=== PATIENT | male | born 1940 | race Caucasian/White ===

== ENCOUNTER 2016-11-03 08:12 | Outpatient (CLI) | payer MEDICARE, OTHER ==
[~2016-11-03] VITALS: Ht 177.8 cm; Wt 84.1 kg
[~2016-11-03 08:12] MED LIST: AZEL23SP NSEACH; CLPD75T PO; DOXA8TAB3 PO; LVT.025T PO; MAGNESIUM PO; MECL25TA56 PO; NAPR-689 PO; NFAMINITAB PO; PRAV80TA2 PO; RANI300T4 PO
[2016-11-03] MEDS ORDERED: DOCU-238 PO (08:38)
[2016-11-03] MEDS ORDERED: ACET-93 PO (08:38)
[2016-11-03] MEDS ORDERED: TRAM50TA2 PO (08:38)
[2016-11-03] MEDS ORDERED: APRE1TAB2 PO (08:38)
[2016-11-03] MEDS ORDERED: PROM6.25 PO (08:38)
[2016-11-03] MEDS ORDERED: CHOL10007 PO (08:38)
[2016-11-03] MEDS ORDERED: TADA5TAB2 PO (08:38)
[2016-11-03] MEDS ORDERED: PANT40TA3 PO (08:38)
[2016-11-03] MEDS ORDERED: PARO20TA5 PO (08:38)
[2016-11-03] MEDS ORDERED: MAGN250T13 PO (08:38)
[2016-11-03] MEDS ORDERED: ROSU40TA20 PO (08:38)
[2016-11-03] MEDS ORDERED: FINA5TAB6 PO (08:38)
[2016-11-03] MEDS ORDERED: LISI-552 PO (08:38)
[2016-11-03] MEDS ORDERED: TAMS0.4C2 PO (08:38)
[2016-11-03] MEDS ORDERED: CLOP75TA28 PO (08:38)
[2016-11-03] MEDS ORDERED: LUBI8CAP PO (08:38)
[2016-11-03 08:45] VITALS: BP 135/64
[2016-11-03 09:10] LABS: BASOPHILS % (AUTO) 0 % (0-10); EOSINOPHILS % (AUTO) 0 % (0-10); LYMPHOCYTES # (AUTO) 1.2 X 10^3 (1.0-4.0); LYMPHOCYTES % (AUTO) 17 % (12-44); MEAN CORPUSCULAR HEMOGLOBIN 33 PG (25-34); MEAN CORPUSCULAR HGB CONC 34 G/DL (32-36); MEAN CORPUSCULAR VOLUME 99 FL (80-99); MEAN PLATELET VOLUME 9.6 FL (7.4-10.4); MONOCYTES # (AUTO) 0.5 X 10^3 (0.0-1.0); MONOCYTES % (AUTO) 7 % (0-12); NEUTROPHILS # (AUTO) 5.3 X 10^3 (1.8-7.8); NEUTROPHILS % (AUTO) 76 % (42-75); PLATELET COUNT 184 10^3/uL (130-400); RED BLOOD COUNT 3.91 10^6/uL (4.35-5.85); RED CELL DISTRIBUTION WIDTH 12.9 % (10.0-14.5)
[2016-11-03 09:34] LABS: ANION GAP 9 MMOL/L (5-14); BLOOD UREA NITROGEN 14 MG/DL (7-18); BUN/CREATININE RATIO 15; CALCIUM 9.6 MG/DL (8.5-10.1); CARBON DIOXIDE 23 MMOL/L (21-32); CHLORIDE 105 MMOL/L (98-107); CREATININE SERUM 0.93 MG/DL (0.60-1.30); GFR ESTIMATED > 60; GLUCOSE 107 MG/DL (70-105); POTASSIUM 4.3 MMOL/L (3.6-5.0); SODIUM 137 MMOL/L (135-145)
--- NOTE | 2016-11-03 09:38 | Diagnostic Imaging Report ---
PA and lateral views of the chest. INDICATION: Preoperative evaluation for bilateral endoscopic sinus surgery. FINDINGS: The lungs are hyperinflated. There is minimal atelectasis or scarring in the left lung base. There is also surgical suture projecting over the mid left lung and surgical clips projecting over the upper and lower left hemithorax. Correlate with surgical history. The heart size is near the upper limits of normal. No effusion or pneumothorax. The mediastinum and kaci appear unremarkable. IMPRESSION: COPD. No acute process. Dictated by: Dictated on workstation # [id number]
== END 2016-11-03 13:14 | disposition home or self-care (01) ==
LOC: PREOP 08:12
PROVIDERS: ATTEND Otolaryngology Otolaryngology/Facial Plastic Surgery
DX: Z01.810 Encounter for preprocedural cardiovascular examination (principal); Z01.812 Encounter for preprocedural laboratory examination; Z11.2 Encounter for screening for other bacterial diseases; J32.9 Chronic sinusitis, unspecified
CPT/HCPCS: 36415; 71020; 80048; 85025; 87081; 93005

== ENCOUNTER 2016-11-06 07:10 | Day surgery (SDC) | payer MEDICARE, OTHER ==
[~2016-11-06] VITALS: Ht 177.8 cm; Wt 84.1 kg
[~2016-11-06 07:10] MED LIST changes: +ACET-93 PO; +APRE1TAB2 PO; +CHOL10007 PO; +CLOP75TA28 PO; +DOCU-238 PO; +FINA5TAB6 PO; +LISI-552 PO; +LUBI8CAP PO; +MAGN250T13 PO; +PANT40TA3 PO; +PARO20TA5 PO; +PROM6.25 PO; +ROSU40TA20 PO; +TADA5TAB2 PO; +TAMS0.4C2 PO; +TRAM50TA2 PO
[2016-11-06] MEDS ORDERED: AMPICILL/SULB 1.5 GM VIAL (UNASYN) ONE ×2 (07:46→07:47)
[2016-11-06] MEDS ORDERED: HYDROCORTISONE 100 MG/2 ML (Solu-CORTEF) VIAL ONE (07:46)
[2016-11-06] MEDS ORDERED: NS (IVPB) 100 ML ONE (07:47)
[2016-11-06] MEDS ORDERED: LACTATED RINGERS 1,000 ML IV PRN ×2 (07:51→07:56)
[2016-11-06] MEDS ORDERED: AMPICILLIN/SULBACTAM 1.5 GM/NS 50 ML IVPB IV ONE ×2 (08:00)
[2016-11-06] MEDS ORDERED: HYDROCORTISONE 100 MG/2 ML (Solu-CORTEF) VIAL IV ONE (08:00)
[2016-11-06 08:18] VITALS: BP 154/83
[2016-11-06] MEDS ORDERED: LIDOCAINE/EPI 1%-1:100,000 (XYLOCAINE) 20ML ONE (08:30)
[2016-11-06] MEDS ORDERED: COCAINE HCL 4% 2 ML SYR ONE (08:30)
[2016-11-06] MEDS ORDERED: PHENYLEPHRINE 0.5% NASAL SPR (NEO-SYNEPHRINE) REG ONE (08:30)
[2016-11-06] MEDS ORDERED: BSS 15 ML ONE (08:30)
[2016-11-06] MEDS ORDERED: fentaNYL INJECTION 100 MCG/2 ML AMP ONE (08:43)
[2016-11-06] MEDS ORDERED: MIDAZOLAM 2 MG/2 ML (VERSED) VIAL ONE (08:43)
[2016-11-06] MEDS ORDERED: ONDANSETRON 4 MG/2 ML (SDV) Z0FRAN ONE (08:53)
[2016-11-06] MEDS ORDERED: DEXAMETHASONE PF 10 MG/ML (DECADRON) VIAL ONE (08:53)
[2016-11-06] MEDS ORDERED: SEVOFLURANE (ULTANE) 15 ML INHAL SOLN ONE (08:53)
[2016-11-06] MEDS ORDERED: LIDOCAINE PF 2% 5 ML (XYLOCAINE) VIAL ONE (08:53)
[2016-11-06] MEDS ORDERED: ROCURONIUM 50 MG/5 ML (ZEMURON) VIAL IV ONE (08:53)
[2016-11-06] MEDS ORDERED: LACTATED RINGERS 1,000 ML IV ONE (08:53)
[2016-11-06] MEDS ORDERED: proPOfol 200 MG/20 ML (DIPRIVAN) VIAL IV ONE (08:53)
--- NOTE | 2016-11-06 09:01 | Progress Note-Pre Operative ---
Pre-Operative Progress Note H&P Reviewed The H&P was reviewed, patient examined and no changes noted. Date H&P Reviewed: Nov 06, 2016 Time H&P Reviewed: 09:00 Pre-Operative Diagnosis: Bilat Chronic Sinus Disease CLARK BOYKIN MD Nov 06, 2016 9:01 am
[2016-11-06] MEDS ORDERED: D5 1/2 NS W/KCL 20 MEQ/L 1,000 ML IV SCH (10:01)
--- NOTE | 2016-11-06 10:01 | Progress Note-Post Operative ---
Post-Operative Progess Note Surgeon (s)/Dough Maker (s) Surgeon CLARK BOYKIN MD Dough Maker n/a Pre-Operative Diagnosis Bilat Chronic Sinus Disease Post-Operative Diagnosis same Post-Op Procedure Note Date of Procedure: Nov 06, 2016 Name of Procedure Performed: Bilat ESS Description & Findings Description and Findings: n/a Anesthesia Type get Estimated Blood Loss minimal Packing DNP-Bilat Specimen(s) collected/removed bilat chornic sinus disease CLARK BOYKIN MD Nov 06, 2016 10:01 am
[2016-11-06] MEDS ORDERED: predniSONE 20 MG TAB PO NR (10:15)
[2016-11-06] MEDS ORDERED: ACETAMINOPHEN 325 MG TABLET/CAPLET (TYLENOL) PO PRN (10:15)
[2016-11-06] MEDS ORDERED: ONDANSETRON 4 MG (ZOFRAN) ORAL DISSOLVE TAB PO PRN (10:15)
[2016-11-06] MEDS ORDERED: ONDANSETRON 4 MG/2 ML (SDV) Z0FRAN IVP PRN (10:30)
[2016-11-06] MEDS ORDERED: morphine INJ 10 MG/ML 1ML (SYR OR VIAL) IVP PRN (10:30)
[2016-11-06] MEDS ORDERED: NEOSTIGMINE (BLOXIVERZ ) 1 MG/1ML 10 ML VIAL ONE (10:37)
[2016-11-06] MEDS ORDERED: GLYCOPYRROLATE 0.2 MG/ML (ROBINUL) 2 ML VIAL ONE (10:37)
[2016-11-06 11:10] VITALS: BP 131/71
[2016-11-06 11:40] VITALS: BP 129/68
[2016-11-06 12:10] VITALS: BP 129/68
== END 2016-11-06 12:30 | disposition home or self-care (01) ==
LOC: SDC 07:10
PROVIDERS: ATTEND Otolaryngology Otolaryngology/Facial Plastic Surgery
DX: J32.0 Chronic maxillary sinusitis (principal); J32.2 Chronic ethmoidal sinusitis; R70.0 Elevated erythrocyte sedimentation rate; J44.9 Chronic obstructive pulmonary disease, unspecified; J45.909 Unspecified asthma, uncomplicated; M34.9 Systemic sclerosis, unspecified; L40.50 Arthropathic psoriasis, unspecified; M19.90 Unspecified osteoarthritis, unspecified site; I10 Essential (primary) hypertension; G47.33 Obstructive sleep apnea (adult) (pediatric); F32.9 Major depressive disorder, single episode, unspecified; K21.9 Gastro-esophageal reflux disease without esophagitis; Z79.899 Other long term (current) drug therapy; Z87.891 Personal history of nicotine dependence